=== PATIENT | female | born 1980 | race American Indian/Alaskan Native ===

== ENCOUNTER 2019-06-07 08:24 | Emergency (ER) | payer MEDICAID ==
[2019-06-07 08:28] VITALS: BP 129/88
--- NOTE | 2019-06-07 09:50 | XRay Report ---
CHEST 2 VIEWS INDICATION / CLINICAL INFORMATION: productive cough. COMPARISON: None available. FINDINGS: SUPPORT DEVICES: None. HEART / MEDIASTINUM: No significant abnormality. LUNGS / PLEURA: No significant pulmonary or pleural abnormality. No pneumothorax. ADDITIONAL FINDINGS: No significant additional findings. IMPRESSION: 1. No acute findings. Signer Name: Brandyn Champagne MD Signed: 06/07/2019 9:46 AM Workstation Name: [id number]
--- NOTE | 2019-06-07 10:00 | Emergency Department Report ---
- General Chief Complaint: Upper Respiratory Infection Stated Complaint: COUGH Time Seen by Provider: 06/07/19 09:25 Source: patient Mode of arrival: Ambulatory Limitations: No Limitations - History of Present Illness Initial Comments: Patient is a 39-year-old F [place] female with no significant past medical history was presenting with a cough for 2 weeks. Patient states that the cough has been productive of yellowish sputum. She has had some shortness of breath. At times the cough can be severe and caused her to have some dizziness. She denies fever nausea vomiting diarrhea body aches at this time. Patient states that initially she started having a sore throat with the cough however the sore throat is improved but the cough is persisted. Improves With: nothing Worsens With: activity, deep breaths Associated Symptoms: rhinorrhea, nasal congestion, cough, shortness of breath. denies: myalgias, diaphoresis, headache, stiff neck, chest pain, nausea, vomiting, diarrhea, dysuria, rash, confusion, right sweats, epistaxis, hoarseness, ear pain - Related Data Previous Rx's Medication Instructions Recorded Last Taken Type Albuterol INH(or & Nicu Only) 2 puff IH QID PRN #1 inhalation 06/07/19 Unknown Rx [ProAir HFA Inhaler] Azithromycin [Zithromax Z-TREV] 250 mg PO DAILY #6 tablet 06/07/19 Unknown Rx guaiFENesin/CODEINE [Robitussin AC] 5 ml PO Q6HR PRN #100 oral.liqd 06/07/19 Unknown Rx predniSONE [Deltasone] 20 mg PO QDAY #5 tab 06/07/19 Unknown Rx Allergies Allergy/AdvReac Type Severity Reaction Status Date / Time No Known Allergies Allergy Unverified 06/07/19 08:27 ED Review of Systems ROS: Stated complaint: COUGH Other details as noted in HPI Comment: All other systems reviewed and negative ED Past Medical Hx - Past Medical History Previous Medical History?: No - Surgical History Past Surgical History?: Yes Additional Surgical History: "tumor removed" - Social History Smoking Status: Never Smoker Substance Use Type: None - Medications Home Medications: Home Medications Medication Instructions Recorded Confirmed Last Taken Type Albuterol INH(or & Nicu Only) 2 puff IH QID PRN #1 inhalation 06/07/19 Unknown Rx [ProAir HFA Inhaler] Azithromycin [Zithromax Z-TREV] 250 mg PO DAILY #6 tablet 06/07/19 Unknown Rx guaiFENesin/CODEINE [Robitussin AC] 5 ml PO Q6HR PRN #100 oral.liqd 06/07/19 Unknown Rx predniSONE [Deltasone] 20 mg PO QDAY #5 tab 06/07/19 Unknown Rx ED Physical Exam - General Limitations: No Limitations General appearance: alert, in no apparent distress - Head Head exam: Present: atraumatic, normocephalic - Eye Eye exam: Present: normal appearance - ENT ENT exam: Present: mucous membranes moist - Neck Neck exam: Present: normal inspection - Respiratory Respiratory exam: Present: rhonchi (scattered but clears with cough). Absent: normal lung sounds bilaterally, respiratory distress, wheezes, rales, chest wall tenderness - Cardiovascular Cardiovascular Exam: Present: regular rate, normal rhythm, normal heart sounds. Absent: systolic murmur, diastolic murmur, rubs, gallop - GI/Abdominal GI/Abdominal exam: Present: soft, normal bowel sounds. Absent: distended, tenderness, guarding - Extremities Exam Extremities exam: Present: normal inspection - Back Exam Back exam: Present: normal inspection - Neurological Exam Neurological exam: Present: alert, oriented X3 - Psychiatric Psychiatric exam: Present: normal affect, normal mood - Skin Skin exam: Present: warm, dry, intact, normal color. Absent: rash ED Course Vital Signs 06/07/19 08:27 Temperature 97.7 F Pulse Rate 88 Respiratory 18 Rate Blood Pressure 129/88 O2 Sat by Pulse 99 Oximetry ED Medical Decision Making - Radiology Data Radiology results: image reviewed (Chest x-ray shows a slight haziness in the right middle lobe obscuring the heart border consistent with a possible infiltrate) - Medical Decision Making With interpreting the chest x-ray and with the patient having a productive cough or shortness of breath for greater than 2 weeks with no fever patient likely has atypical pneumonia. Patient be started on azithromycin as well as medication for symptomatic relief and she will be discharged home. Critical care attestation.: If time is entered above; I have spent that time in minutes in the direct care of this critically ill patient, excluding procedure time. ED Disposition Clinical Impression: Atypical pneumonia Disposition: DC-01 TO HOME OR SELFCARE Is pt being admited?: No Does the pt Need Aspirin: No Condition: Stable Instructions: Pneumonia (ED) Referrals: AURA JHAVERI MD [Referring] - 3-5 Days Time of Disposition: 10:00
== END 2019-06-07 10:38 | disposition home or self-care (01) ==
LOC: ED 08:24
DX: J18.9 Pneumonia, unspecified organism (principal); Z79.899 Other long term (current) drug therapy; Z98.890 Other specified postprocedural states
CPT/HCPCS: 71046; 99283